=== PATIENT | male | born 1950 | race Caucasian/White ===

== ENCOUNTER 2018-02-26 13:28 | Emergency (ER) | payer OTHER, MEDICARE ==
[2018-02-26 13:50] VITALS: BP 162/84; PULSE 64; TEMP 98.2; BMI 29.8
[2018-02-26] MEDS ORDERED: SODIUM CHLORIDE 500 ML IV STA (14:00)
[2018-02-26] MEDS ORDERED: ONDANSETRON 4 MG/2 ML VIAL IVPB ONE (14:04)
[2018-02-26] MEDS ORDERED: KETOROLAC TROMETHAMINE 30 MG/1 ML VIAL IVPUSH ONE (14:04)
[2018-02-26] MEDS ORDERED: ONDANSETRON 4 MG/2 ML VIAL ONE (14:07)
[2018-02-26] MEDS ORDERED: KETOROLAC TROMETHAMINE 30 MG/1 ML VIAL ONE (14:07)
--- NOTE | 2018-02-26 14:07 | PDOC ---
History of Present Illness - General Chief Complaint: Hematuria Stated Complaint: ABD/BACK PAIN Time Seen by Provider: 02/26/18 13:56 - History of Present Illness Initial Comments: 02/26/18 18:11 Chief complaint: Abdominal pain History of present illness: Left flank pain radiating to the left lower quadrant beginning to 30 a.m. this morning, woke up from sleep. Pain was intermittent, accompanied by nausea and retching. Also noted that his urine was pink in color, but there was no dysuria. Review of systems: Denies fever/chills, URI symptoms, sore throat, cough, chest pain, shortness of breath, diarrhea, dysuria, frequency, urgency, hesitancy, visual or focal neurologic symptoms, unsteadiness of gait Past medical history: No history of kidney stones or other kidney disease. Hip replacement, knee surgery. Social history: Occasional social alcohol, none recently. No tobacco or other drugs active and without disability stable home and family Family history: Reviewed and noncontributory including early coronary artery disease, metabolic disease including diabetes, and cancer Physical exam: Alert and oriented well-developed well-nourished moderate colicky pain left flank and abdomen. Cooperative Afebrile, vital signs normal No pallor or icterus. HEENT clear Neck supple without bruit mass or nodes Chest clear CV regular without murmur rub or gallop no tachycardia Abdomen nondistended, bowel sounds normal. Soft without mass tenderness organomegaly. No CVAT Neurological intact Skin clear, no rash, adequate turgor and wet mucous membranes Extremities no CCE Impression: Probable renal colic. Pain is characteristic and there is hematuria Plan: Urinalysis, CBC and chemistries, IV hydration, analgesics and anti-emetics , further workup depending on results. Past History - Past Medical History Allergies/Adverse Reactions: Allergies Allergy/AdvReac Type Severity Reaction Status Date / Time morphine Allergy Intermediate Hives Verified 02/26/18 13:40 Home Medications: Ambulatory Orders Aspirin [Aspirin EC] 81 mg PO DAILY 06/29/11 Multivit-Min/Folic/Vit K/Lycop [One-A-Day Men's Tablet] 1 each PO DAILY Ibuprofen 800 mg PO QID PRN #20 tablet 02/26/18 Ondansetron [Zofran Odt -] 4 - 8 mg SL TID PRN #15 od.tablet 02/26/18 COPD: No - Suicide/Smoking/Psychosocial Hx Smoking Status: No Smoking History: Never smoked Have you smoked in the past 12 months: No Number of Cigarettes Smoked Daily: 0 Information on smoking cessation initiated: No Hx Alcohol Use: No Drug/Substance Use Hx: No Substance Use Type: None *Physical Exam - Vital Signs Last Vital Signs Temp Pulse Resp BP Pulse Ox 98.2 F 64 20 162/84 97 02/26/18 13:28 02/26/18 13:28 02/26/18 13:28 02/26/18 13:28 02/26/18 13:28 ED Treatment Course - LABORATORY CBC & Chemistry Diagram: 02/26/18 14:20 02/26/18 14:20 Medical Decision Making - Medical Decision Making 02/26/18 18:15 White blood count is normal. BUN/creatinine creatinine are elevated at 30 and 1.6, probable mild dehydration. Urinalysis shows blood but no sign of infection. Patient responded to IV hydration, Toradol, and Zofran. No further nausea. Pain resolved completely. Urinating normally. CT scan was discussed with the patient. He would prefer to forego the radiation at present. Sent home with a urine strainer, analgesics, and Zofran. To return to the emergency room if pain is persistent or if there are other signs that develop such as fever/chills, dysuria, or more severe back pain. Otherwise follow-up with urologist in one week. Referred to Dr. Acosta. *DC/Admit/Observation/Transfer Diagnosis at time of Disposition: Renal colic on left side - Discharge Dispostion Disposition: HOME Condition at time of disposition: Improved Decision to Admit order: No - Prescriptions Prescriptions: Ibuprofen 800 mg PO QID PRN #20 tablet PRN Reason: Pain Ondansetron [Zofran Odt -] 4 - 8 mg SL TID PRN #15 od.tablet PRN Reason: Nausea And/Or Vomiting - Referrals Referrals: Martir Hope MD., MD [Staff Physician] - 1 week - Patient Instructions Printed Discharge Instructions: DI for Kidney Stones Additional Instructions: Return to ER if the pain recurs and cannot be controlled with medication at home , or if there is fever, increased blood in the urine, back pain, or painful urination. Otherwise follow-up with urologist in approximately one week. Strain all urines for the next 2 or 3 days Keep well-hydrated. - Post Discharge Activity
[2018-02-26 14:34] LABS: BASO % 0.6 % (0-2.0); HEMATOCRIT 44.2 % (35.4-49); HEMOGLOBIN 14.9 GM/dl (11.7-16.9); LYMPH % 6.5 % (8-40); MCH 32.9 pg (25.7-33.7); MCHC 33.8 g/dl (32.0-35.9); MEAN CELL VOLUME 97.2 fl (80-96); MEAN PLT VOLUME 9.1 fl (7.5-11.1); MONO % 4.3 % (3.8-10.2); NEUT % 88.6 % (42.8-82.8); PLATELET COUNT 227 K/MM3 (134-434); RBC 4.55 M/mm3 (4.00-5.60); RDW 12.3 % (11.9-15.9); WHITE BLOOD COUNT 8.3 K/mm3 (4.0-10.8)
[2018-02-26 14:37] LABS: ALBUMIN 4.4 g/dl (3.5-5.0); ALK PHOS 72 U/L (32-92); ANION GAP 5 MMOL/L (8-16); BLOOD UREA NITROGEN 27 mg/dl (7-18); CALCIUM 9.4 mg/dl (8.4-10.2); CHLORIDE 105 mmol/L (98-107); CO2 23 mmol/L (22-28); CREATININE 1.6 mg/dl (0.6-1.3); GLUCOSE,RANDOM 140 mg/dl (74-106); SGOT/AST 31 U/L (10-42); SGPT/ALT 41 U/L (10-40); SODIUM 133 mmol/L (136-145); TOT PROT 7.7 g/dl (6.4-8.3)
[2018-02-26] MEDS ORDERED: SODIUM CHLORIDE 1,000 ML IV STA (15:00)
[2018-02-26 15:09] LABS: POTASSIUM 4.5 mmol/L (3.5-5.1)
[2018-02-26 15:49] LABS: URINE APPEARANCE Clear; URINE BILIRUBIN Negative (NEGATIVE); URINE COLOR Amber; URINE GLUCOSE (UA) Negative (NEGATIVE); URINE KETONE 1+ (NEGATIVE); URINE LEUK ESTERASE Negative (NEGATIVE); URINE NITRITE Negative (NEGATIVE); URINE PROTEIN 3+ (NEGATIVE); URINE UROBILINOGEN 0.2 (0.2-1.0)
[2018-02-26 16:11] LABS: URINE RBC 20-40 /hpf (0-3); URINE WBC 0-2 (0-2)
== END 2018-02-26 16:33 | disposition home or self-care (01) ==
LOC: FER 13:28
PROC: 3E0333Z Introduction of Anti-inflammatory into Peripheral Vein, Percutaneous Approach (ICD-10-PCS; principal; 2018-02-26)
PROC: 3E033GC Introduction of Other Therapeutic Substance into Peripheral Vein, Percutaneous Approach (ICD-10-PCS; 2018-02-26)
PROC: 3E0337Z Introduction of Electrolytic and Water Balance Substance into Peripheral Vein, Percutaneous Approach (ICD-10-PCS; 2018-02-26)
DX: N23 Unspecified renal colic (principal)
CPT/HCPCS: 36415; 80053; 81003; 81015; 85025; 96361; 96374; 96375; 99283-25; J7030

== ENCOUNTER 2018-03-01 00:56 | Observation (INO) | payer OTHER, MEDICARE ==
[2018-03-01] MEDS ORDERED: SODIUM CHLORIDE 0.9% 500 ML INFUS.BAG IV ONE (01:03)
[2018-03-01] MEDS ORDERED: LACTULOSE 20 GM/30 ML UDC (FOR ORAL USE ONLY) PO ONE (01:03)
[2018-03-01] MEDS ORDERED: KETOROLAC TROMETHAMINE 30 MG/1 ML VIAL IVPUSH ONE (01:03)
--- NOTE | 2018-03-01 01:03 | PDOC ---
History of Present Illness - General Chief Complaint: Pain Stated Complaint: PAIN/CONSTIPATION Time Seen by Provider: 03/01/18 01:03 Past History - Travel Traveled outside of the country in the last 30 days: No Close contact w/someone who was outside of country & ill: No - Past Medical History Allergies/Adverse Reactions: Allergies Allergy/AdvReac Type Severity Reaction Status Date / Time morphine Allergy Intermediate Hives Verified 02/26/18 13:40 Home Medications: Ambulatory Orders Aspirin [Aspirin EC] 81 mg PO DAILY 06/29/11 Multivit-Min/Folic/Vit K/Lycop [One-A-Day Men's Tablet] 1 each PO DAILY Ibuprofen 800 mg PO QID PRN #20 tablet 02/26/18 Ondansetron [Zofran Odt -] 4 - 8 mg SL TID PRN #15 od.tablet 02/26/18 COPD: No - Suicide/Smoking/Psychosocial Hx Smoking Status: No Smoking History: Never smoked Have you smoked in the past 12 months: No Number of Cigarettes Smoked Daily: 0 Hx Alcohol Use: No Drug/Substance Use Hx: No Substance Use Type: None Review of Systems - Review of Systems Able to Perform ROS?: Yes Is the patient limited Swedish proficient: No Constitutional: Yes: Loss of Appetite, Malaise. No: Symptoms Reported, See HPI , Chills, Diaphoresis, Fever, Night Sweats, Weakness, Weight Stable, Unintentional Wgt. Loss, Unexplained wgt Loss, Other HEENTM: No: Symptoms Reported, See HPI, Eye Pain, Blurred Vision, Tearing, Recent change in vision, Double Vision, Cataracts, Ear Pain, Ocular Prothesis, Ear Discharge, Nose Pain, Nose Congestion, Tinnitus, Nose Bleeding, Hearing Loss , Throat Pain, Throat Swelling, Mouth Pain, Dental Problems, Difficulty Swallowing, Mouth Swelling, Other Respiratory: No: Symptoms reported, See HPI, Cough, Orthopnea, Shortness of Breath, SOB with Exertion, SOB at Rest, Stridor, Wheezing, Productive cough, Hemoptysis, Other Cardiac (ROS): No: Symptoms Reported, See HPI, Chest Pain, Edema, Irregular Heart Rate, Lightheadedness, Palpitations, Syncope, Chest Tightness, Other ABD/GI: Yes: Constipated, Abdominal cramping. No: Symptoms Reported, See HPI, Abdominal Distended, Abd. Pain w/ defecation, Blood Streaked Bowels, Diarrhea, Difficulty Swallowing, Nausea, Poor Appetite, Poor Fluid Intake, Rectal Bleeding , Vomiting, Indigestion, Tarry Stools, Other : Yes: Other (suprapubic pain). No: Symptoms Reported, See HPI, Burning, Dysuria, Discharge, Frequency, Flank Pain, Hematuria, Incontinence, Pain, Urgency, Testicular Mass, Testicular Swelling, Lesions, Testicular Pain Musculoskeletal: No: Symptoms Reported, See HPI, Back Pain, Gout, Joint Pain, Joint Swelling, Muscle Pain, Muscle Weakness, Neck Pain, Joint Stiffness, Other Integumentary: No: Symptoms Reported, See HPI, Bruising, Change in Color, Change in Hair/Nails, Dryness, Erythema, Flushing, Lesions, Lumps, Pallor, Pruritus, Rash, Sweating, Other Endocrine: Yes: Intolerance to Cold Hematologic/Lymphatic: No: Symptoms Reported, See HPI, Anemia, Blood Clots, Easy Bleeding, Easy Bruising, Bleeding Diathesis, Lymph Node Abnormalities, Swollen Glands, Other *Physical Exam - Physical Exam General Appearance: Yes: Nourished, Appropriately Dressed, Mild Distress HEENT: positive: EOMI, ERNESTINE, Normal ENT Inspection, Normal Voice, TMs Normal, Pharynx Normal Neck: positive: Trachea midline, Supple Respiratory/Chest: positive: Lungs Clear, Normal Breath Sounds Cardiovascular: positive: Regular Rhythm, Regular Rate, S1, S2 Gastrointestinal/Abdominal: positive: Normal Bowel Sounds, Flat, Soft Musculoskeletal: positive: Normal Inspection. 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 Unremarkable pancreas and gallbladder. No bowel obstruction, colitis, free fluid or free air.Appendix not seen. At least one diverticulum sigmoid colon. Small umbilical hernia containing fat. Arthroplasty right hip. Small indolent appearing cystic focus in lateral left rib 7 03/01/18 03:42 Pt feels slight improvement with zofran and 2L NSS. He was able to give us a urine sample which was sent to the lab. Awaiting results. As needed, we will treat with abx. Pt was given a dose of toradol (before I knew of the renal insuff) Pt has a morphine allergy (hives) and he has elevated LFTs, so tylenol is not a great option for him either. Pt will be admitted to the hospitalist team for hydronephrosis, elevated LFTs, worsening renal insuff in the past 2 days, as well as dehydration and pain management. Hospitalist team is aware. *DC/Admit/Observation/Transfer Diagnosis at time of Disposition: Renal colic on left side, Suprapubic discomfort, Renal insufficiency, Elevated LFTs, Hydronephrosis due to obstruction of ureter - Discharge Dispostion Condition at time of disposition: Guarded Decision to Admit order: Yes - Referrals - Patient Instructions - Post Discharge Activity
[2018-03-01] MEDS ORDERED: KETOROLAC TROMETHAMINE 30 MG/1 ML VIAL ONE (01:06)
[2018-03-01] MEDS ORDERED: LACTULOSE 20 GM/30 ML UDC (FOR ORAL USE ONLY) ONE (01:06)
[2018-03-01] MEDS ORDERED: ONDANSETRON 4 MG TABLET PO ONE (01:22)
[2018-03-01] MEDS ORDERED: ONDANSETRON 4 MG/2 ML VIAL ONE (01:23)
[2018-03-01] MEDS ORDERED: ONDANSETRON 4 MG/2 ML VIAL IVPUSH ONE (01:25)
[2018-03-01 02:24] LABS: BASO % 0.2 % (0-2.0); HEMATOCRIT 42.3 % (35.4-49); HEMOGLOBIN 14.2 GM/dL (11.7-16.9); LYMPH % 3.5 % (8-40); MCH 32.6 pg (25.7-33.7); MCHC 33.6 g/dl (32.0-35.9); MEAN CELL VOLUME 97.2 fl (80-96); MEAN PLT VOLUME 9.6 fl (7.5-11.1); MONO % 7.7 % (3.8-10.2); NEUT % 88.6 % (42.8-82.8); PLATELET COUNT 182 K/MM3 (134-434); RBC 4.35 M/mm3 (4.00-5.60); RDW 12.7 % (11.9-15.9); WHITE BLOOD COUNT 13.9 K/mm3 (4.0-10.0)
[2018-03-01 02:45] LABS: ALBUMIN 3.8 g/dl (3.4-5.0); ALK PHOS 99 U/L (45-117); ANION GAP 9 MMOL/L (8-16); BILIRUBIN,TOTAL 1.2 mg/dL (0.2-1); BLOOD UREA NITROGEN 26 mg/dL (7-18); CALCIUM 8.9 mg/dL (8.5-10.1); CHLORIDE 106 mmol/L (98-107); CO2 24 mmol/L (21-32); CREATININE 2.2 mg/dL (0.55-1.3); GLUCOSE,RANDOM 150 mg/dL (74-106); SGOT/AST 58 U/L (15-37); SGPT/ALT 84 U/L (13-61); SODIUM 139 mmol/L (136-145); TOT PROT 7.5 g/dl (6.4-8.2)
[2018-03-01] MEDS ORDERED: TAMSULOSIN HCL 0.4 MG CAP PO ONE (02:54)
[2018-03-01] MEDS ORDERED: MAG HYDROX/AL HYDROX/SIMETH 30 ML UNIT-DOSE CUP PO ONE (03:16)
[2018-03-01] MEDS ORDERED: MAG HYDROX/AL HYDROX/SIMETH 30 ML UNIT-DOSE CUP ONE (03:18)
[2018-03-01] MEDS ORDERED: TAMSULOSIN HCL 0.4 MG CAP ONE (03:19)
[2018-03-01] MEDS ORDERED: oxyCODONE HCL 5 MG TABLET PO PRN (03:42)
[2018-03-01] MEDS ORDERED: ONDANSETRON 4 MG/2 ML VIAL IVPUSH PRN (03:42)
[2018-03-01] MEDS ORDERED: ACETAMINOPHEN 325 MG TABLET (FP) PO PRN (03:43)
[2018-03-01 03:46] LABS: URINE APPEARANCE SLCLOUDY; URINE BILIRUBIN NEGATIVE (<2.0 mg/dL); URINE COLOR YELLOW; URINE GLUCOSE (UA) NEGATIVE (NEGATIVE); URINE KETONE NEGATIVE (NEGATIVE); URINE LEUK ESTERASE NEGATIVE (NEGATIVE); URINE NITRITE NEGATIVE (NEGATIVE); URINE PROTEIN 2+ (NEGATIVE); URINE UROBILINOGEN NEGATIVE mg/dL (0.2-1.0)
[2018-03-01 03:52] LABS: EPI CELLS RARE /HPF (FEW); URINE MUCUS RARE
[2018-03-01 04:30] VITALS: BMI 30.5
--- NOTE | 2018-03-01 08:36 | HP ---
CHIEF COMPLAINT: abdominal pain PCP: Dr Butler HISTORY OF PRESENT ILLNESS: Patient is a 60-year-old male with no significant past medical history as per patient. Patient reports with left flank pain for the past 5 days. He was evaluated and this was a department on February 26 2018 and was discharged with Renal calculi. Patient reports worsening of flank pain radiating to abdomen with nausea. He denies any tactile fever. ER course was notable for: (1)CT scan of abdomen and pelvis without contrast, 2 mm stone distal left ureter with moderate hydronephrosis. (2)Creatinine 2.2 (3)AST ALT 58/84. 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 Smoking: none Alcohol:none Drugs: none Family History: non- contributory to this admission Allergies morphine Allergy (Intermediate, Verified 02/26/18 13:40) Hives HOME MEDICATIONS: Home Medications Medication Instructions Recorded Aspirin [Aspirin EC] 81 mg PO DAILY 06/29/11 Multivit-Min/Folic/Vit K/Lycop 1 each PO DAILY 06/29/11 [One-A-Day Men's Tablet] Ibuprofen 800 mg PO QID PRN #20 tablet 02/26/18 Ondansetron [Zofran Odt -] 4 - 8 mg SL TID PRN #15 od.tablet 02/26/18 REVIEW OF SYSTEMS CONSTITUTIONAL: Absent: fever, chills, diaphoresis, generalized weakness, malaise, loss of appetite, weight change HEENT: Absent: rhinorrhea, nasal congestion, throat pain, throat swelling, difficulty swallowing, mouth swelling, ear pain, eye pain, visual changes CARDIOVASCULAR: Absent: chest pain, syncope, palpitations, irregular heart rate, lightheadedness , peripheral edema RESPIRATORY: Absent: cough, shortness of breath, dyspnea with exertion, orthopnea, wheezing, stridor, hemoptysis GASTROINTESTINAL: present: abdominal pain Absent: abdominal distension, nausea, vomiting, diarrhea, constipation, melena, hematochezia GENITOURINARY: Absent: dysuria, frequency, urgency, hesitancy, hematuria, flank pain, genital pain MUSCULOSKELETAL: Absent: myalgia, arthralgia, joint swelling, back pain, neck pain SKIN: Absent: rash, itching, pallor HEMATOLOGIC/IMMUNOLOGIC: Absent: easy bleeding, easy bruising, lymphadenopathy, frequent infections ENDOCRINE: Absent: unexplained weight gain, unexplained weight loss, heat intolerance, cold intolerance NEUROLOGIC: Absent: headache, focal weakness or paresthesias, dizziness, unsteady gait, seizure, mental status changes, bladder or bowel incontinence PSYCHIATRIC: Absent: anxiety, depression, suicidal or homicidal ideation, hallucinations. PHYSICAL EXAMINATION Vital Signs - 24 hr 03/01/18 03/01/18 01:00 03:50 Temperature 97.8 F 98.1 F Pulse Rate 62 68 Respiratory 18 20 Rate Blood Pressure 149/90 134/74 O2 Sat by Pulse 98 98 Oximetry (%) GENERAL: Awake, alert, and fully oriented, in no acute distress. HEAD: Normal with no signs of trauma. EYES: Pupils equal, round and reactive to light, extraocular movements intact, sclera anicteric, conjunctiva clear. No lid lag. EARS, NOSE, THROAT: Ears normal, nares patent, oropharynx clear without exudates. Moist mucous membranes. NECK: Normal range of motion, supple without lymphadenopathy, JVD, or masses. LUNGS: Breath sounds equal, clear to auscultation bilaterally. No wheezes, and no crackles. No accessory muscle use. HEART: Regular rate and rhythm, normal S1 and S2 without murmur, rub or gallop. ABDOMEN: Soft, nontender, not distended, normoactive bowel sounds, no guarding, no rebound, no masses. No hepatomegaly or splenomegaly. MUSCULOSKELETAL: Normal range of motion at all joints. No bony deformities or tenderness. No CVA tenderness. UPPER EXTREMITIES: 2+ pulses, warm, well-perfused. No cyanosis. No clubbing. No peripheral edema. LOWER EXTREMITIES: 2+ pulses, warm, well-perfused. No calf tenderness. No peripheral edema. NEUROLOGICAL: Cranial nerves II-XII intact. Normal speech. Normal gait. PSYCHIATRIC: Cooperative. Good eye contact. Appropriate mood and affect. SKIN: Warm, dry, normal turgor, no rashes or lesions noted, normal capillary refill. Laboratory Results - last 24 hr 03/01/18 03/01/18 03/01/18 01:15 01:15 03:00 WBC 13.9 H RBC 4.35 Hgb 14.2 Hct 42.3 MCV 97.2 H MCH 32.6 MCHC 33.6 RDW 12.7 Plt Count 182 MPV 9.6 Absolute Neuts (auto) 12.3 H Neutrophils % 88.6 H Lymphocytes % 3.5 L Monocytes % 7.7 Eosinophils % 0.0 Basophils % 0.2 Nucleated RBC % 0 Sodium 139 Potassium 4.0 Chloride 106 Carbon Dioxide 24 Anion Gap 9 BUN 26 H Creatinine 2.2 H Creat Clearance w eGFR 29.91 Random Glucose 150 H Calcium 8.9 Total Bilirubin 1.2 H AST 58 H ALT 84 H Alkaline Phosphatase 99 Total Protein 7.5 Albumin 3.8 Urine Color Yellow Urine Appearance Slcloudy Urine pH 5.0 Ur Specific [place] 1.014 Urine Protein 2+ H Urine Glucose (UA) Negative Urine Ketones Negative Urine Blood 1+ H Urine Nitrite Negative Urine Bilirubin Negative Urine Urobilinogen Negative Ur Leukocyte Esterase Negative Urine WBC (Auto) 3 Urine RBC (Auto) None Ur Epithelial Cells Rare Urine Mucus Rare ASSESSMENT/PLAN: 1) urology ureter calculi w/left hydronephrosis obstructive uropathy -preliminary ct scan report reviewed, awaiting final, will continue IVF, start flomax - strain all urine - repeat bmp ordered, close following - appreciate urology input 2) GI transanimitis - benign abdomimal exam, patient does report taking tylenol every 4 hours for the past 48 hours - trend liver enzymes F/E/N - regular diet - ivf ppx - oob - pepcid dispo: pt requires obsv admission Visit type - Emergency Visit Emergency Visit: Yes ED Registration Date: 03/01/18 Care time: The patient presented to the Emergency Department on the above date and was hospitalized for further evaluation of their emergent condition. - New Patient This patient is new to me today: Yes Date on this admission: 03/01/18 - Critical Care Critical Care patient: No
[2018-03-01] MEDS: CEFTRIAXONE 1 GM/50 ML BAG IVPB SCH (10:17)
[2018-03-01] MEDS: SODIUM CHLORIDE 1,000 ML IV SCH (10:17)
[2018-03-01] MEDS: MULTIVITAMINS (DAILY MVI) TABLET (FP) PO SCH (10:19)
[2018-03-01] MEDS: POLYETHYLENE GLYCOL 3350 119 GM BTL PO SCH (10:19)
[2018-03-01] MEDS: ASPIRIN COATED 81 MG TABLET.EC PO SCH (10:19)
[2018-03-01 11:32] LABS: BASO % 0.2 % (0-2.0); HEMATOCRIT 36.9 % (35.4-49); HEMOGLOBIN 12.8 GM/dl (11.7-16.9); LYMPH % 3.9 % (8-40); MCH 33.2 pg (25.7-33.7); MCHC 34.6 g/dl (32.0-35.9); MEAN PLT VOLUME 8.6 fl (7.5-11.1); MONO % 8.7 % (3.8-10.2); NEUT % 87.2 % (42.8-82.8); PLATELET COUNT 162 K/MM3 (134-434); RBC 3.84 M/mm3 (4.00-5.60); RDW 11.6 % (11.9-15.9)
[2018-03-01 11:45] LABS: INR 1.46 (0.82-1.09); PROTHROMBIN TIME (PATIENT) 16.2 SEC (10.2-13.0)
[2018-03-01 11:46] LABS: ALBUMIN 3.2 g/dl (3.5-5.0); ALK PHOS 85 U/L (32-92); ANION GAP 6 MMOL/L (8-16); BILIRUBIN,TOTAL 1.3 mg/dl (0.2-1.0); BLOOD UREA NITROGEN 24 mg/dl (7-18); CALCIUM 8.6 mg/dl (8.4-10.2); CHLORIDE 106 mmol/L (98-107); CO2 24 mmol/L (22-28); GLUCOSE,RANDOM 134 mg/dl (74-106); MAGNESIUM 2.1 mg/dL (1.8-2.4); POTASSIUM 4.9 mmol/L (3.5-5.1); SGOT/AST 54 U/L (10-42); SGPT/ALT 74 U/L (10-40); SODIUM 136 mmol/L (136-145)
[2018-03-01] MEDS ORDERED: FLU VACCINE QUAD 60 MCG/0.5 ML (MDV 18-19) IM ONE (12:00)
[2018-03-01] MEDS ORDERED: SODIUM PHOSPHATE - 15 MM in SODIUM CHLORIDE 250 ML IVPB ONE (12:15)
--- NOTE | 2018-03-01 17:33 | CON.GU ---
Consult Consult Specialty:: urology Reason for Consultation:: left renal colic - History of Present Illness Chief Complaint: left colic History of Present Illness: Patient is a 68 year old male who presented with left sided renal colic with nausea. Patient's symtoms started 4 days ago. Patient has not seen a doctor for 2 years however denies history of chronic kidney disease. Patient denies dysuria, fever, chills, or gross hematuria. - History Source History Provided By: Patient Limitations to Obtaining History: No Limitations - Alcohol/Substance Use Hx Alcohol Use: No - Smoking History Smoking history: Never smoked Have you smoked in the past 12 months: No Aproximately how many cigarettes per day: 0 Home Medications - Allergies Allergies/Adverse Reactions: Allergies Allergy/AdvReac Type Severity Reaction Status Date / Time morphine Allergy Intermediate Hives Verified 02/26/18 13:40 - Home Medications Home Medications: Ambulatory Orders Aspirin [Aspirin EC] 81 mg PO DAILY 06/29/11 Multivit-Min/Folic/Vit K/Lycop [One-A-Day Men's Tablet] 1 each PO DAILY Ibuprofen 800 mg PO QID PRN #20 tablet 02/26/18 Ondansetron [Zofran Odt -] 4 - 8 mg SL TID PRN #15 od.tablet 02/26/18 Physical Exam- Vital Signs: Vital Signs Temperature 99.1 F 03/01/18 14:59 Pulse Rate 87 03/01/18 14:59 Respiratory Rate 18 03/01/18 14:59 Blood Pressure 127/67 03/01/18 14:59 O2 Sat by Pulse Oximetry (%) 98 03/01/18 09:00 Constitutional: Yes: Well Nourished, No Distress, Calm Eyes: Yes: WNL, Conjunctiva Clear, EOM Intact HENT: Yes: WNL, Atraumatic, Normocephalic Neck: Yes: WNL, Supple, Trachea Midline Cardiovascular: Yes: WNL, Regular Rate and Rhythm Respiratory: Yes: WNL, Regular Gastrointestinal: Yes: WNL, Normal Bowel Sounds, Soft Renal/: Yes: CVA Tenderness - Left (with mild suprapubic tenderness; left flank pain is mild) Pelvis: Yes: Bladder Non Palpable Testicles: Yes: WNL Scrotum: Yes: WNL Penis: Yes: WNL Prostate Exam: Yes: Deferred Musculoskeletal: Yes: WNL Labs: CBC, BMP 03/01/18 11:18 03/01/18 11:18 Imaging - Results Cat Scan: Image Reviewed Assessment/Plan impression left ureteral stone with hydro acute renal insufficiency plan maintain on flomax patient is urologically cleared for discharged once nausea and pain controlled patient will follow-up for a renal sonogram and repeat chemistry this week discussed with patient x15 minutes
--- NOTE | 2018-03-01 21:32 | EKG ---
Test Reason : Blood Pressure : / mmHG Vent. Rate : 060 BPM Atrial Rate : 060 BPM P-R Int : 142 ms QRS Dur : 086 ms QT Int : 416 ms P-R-T Axes : 038 008 -03 degrees QTc Int : 416 ms NORMAL SINUS RHYTHM NORMAL ECG NO PREVIOUS ECGS AVAILABLE Confirmed by LUPE ROMERO MD ([id number]) on 03/01/2018 9:32:21 PM Referred By: MD KLEIN Confirmed By:LUPE ROMERO MD
[2018-03-01] MEDS ORDERED: DOCUSATE SODIUM 100 MG CAPSULE (FP) PO SCH (22:00)
[2018-03-02] MEDS ORDERED: TAMSULOSIN HCL 0.4 MG CAP PO SCH (08:30)
[2018-03-02 08:31] LABS: BASO % 0.1 % (0-2.0); EOS % 0.3 % (0-4.5); HEMATOCRIT 33.8 % (35.4-49); LYMPH % 8.7 % (8-40); MCH 34.2 pg (25.7-33.7); MCHC 35.3 g/dl (32.0-35.9); MEAN CELL VOLUME 96.8 fl (80-96); MEAN PLT VOLUME 9.1 fl (7.5-11.1); MONO % 10.7 % (3.8-10.2); NEUT % 80.2 % (42.8-82.8); PLATELET COUNT 159 K/MM3 (134-434); RDW 11.9 % (11.9-15.9); WHITE BLOOD COUNT 10.6 K/mm3 (4.0-10.8)
[2018-03-02 08:38] LABS: ANION GAP 4 MMOL/L (8-16); BLOOD UREA NITROGEN 23 mg/dl (7-18); CALCIUM 7.7 mg/dl (8.4-10.2); CHLORIDE 108 mmol/L (98-107); CO2 22 mmol/L (22-28); GLUCOSE,RANDOM 108 mg/dl (74-106); MAGNESIUM 1.9 mg/dL (1.8-2.4); PHOSPHOROUS 2.3 mg/dl (2.5-4.6); POTASSIUM 4.6 mmol/L (3.5-5.1); SODIUM 134 mmol/L (136-145)
[2018-03-02] MEDS: MULTIVITAMINS (DAILY MVI) TABLET (FP) PO SCH (09:48)
[2018-03-02] MEDS: CEFTRIAXONE 1 GM/50 ML BAG IVPB SCH (09:48)
[2018-03-02] MEDS: SODIUM CHLORIDE 1,000 ML IV SCH (09:48)
[2018-03-02] MEDS: ASPIRIN COATED 81 MG TABLET.EC PO SCH (09:48)
[2018-03-02] MEDS: POLYETHYLENE GLYCOL 3350 119 GM BTL PO SCH (09:49)
[2018-03-02] MEDS ORDERED: NAPH,MB-DB/K PH,MBDB POWDER PACKET PO SCH (10:00)
--- NOTE | 2018-03-02 11:38 | DS ---
Physical Exam: SUBJECTIVE: Patient seen and examined, reports abdominal pain is much improved, tolerating diet, denies any tactile fevers. OBJECTIVE:Patient is a 60-year-old male with no significant past medical history as per patient. Patient reports with left flank pain for the past 5 days. He was evaluated and this was a department on February 26 2018 and was discharged with Renal calculi. Patient reports worsening of flank pain radiating to abdomen with nausea. He denies any tactile fever. ER course was notable for: (1)CT scan of abdomen and pelvis without contrast, 2 mm stone distal left ureter with moderate hydronephrosis. (2)Creatinine 2.2 (3)AST ALT 58/84. Vital Signs Period Temp Pulse Resp BP Sys/Magdaleno Pulse Ox Last 24 Hr 99.1 F-99.7 F 66-87 18-20 123-142/67-71 97-98 PHYSICAL EXAM GENERAL: The patient is awake, alert, and fully oriented, in no acute distress. HEAD: Normal with no signs of trauma. EYES: PERRL, extraocular movements intact, sclera anicteric, conjunctiva clear. ENT: Ears normal, nares patent, oropharynx clear without exudates, moist mucous membranes. NECK: Trachea midline, full range of motion, supple. LUNGS: Breath sounds equal, clear to auscultation bilaterally, no wheezes, no crackles, no accessory muscle use. HEART: Regular rate and rhythm, S1, S2 without murmur, rub or gallop. ABDOMEN: no cva tenderness, Soft, nontender, nondistended, normoactive bowel sounds, no guarding, no rebound, no hepatosplenomegaly, no masses. EXTREMITIES: 2+ pulses, warm, well-perfused, no edema. NEUROLOGICAL: Cranial nerves II through XII grossly intact. Normal speech, gait not observed. PSYCH: Normal mood, normal affect. SKIN: Warm, dry, normal turgor, no rashes or lesions noted. LABS Laboratory Results - last 24 hr 03/01/18 03/01/18 03/01/18 11:18 11:18 11:18 WBC 12.0 H RBC 3.84 L Hgb 12.8 Hct 36.9 D MCV 96.0 MCH 33.2 MCHC 34.6 RDW 11.6 L Plt Count 162 D MPV 8.6 Absolute Neuts (auto) 10.5 Neutrophils % 87.2 H Lymphocytes % 3.9 L D Monocytes % 8.7 D Eosinophils % 0.0 Basophils % 0.2 PT with INR 16.2 H INR 1.46 H Sodium 136 Potassium 4.9 Chloride 106 Carbon Dioxide 24 Anion Gap 6 L BUN 24 H Creatinine 2.0 H Creat Clearance w eGFR 33.39 Random Glucose 134 H Calcium 8.6 Phosphorus 2.0 L Magnesium 2.1 Total Bilirubin 1.3 H AST 54 H D ALT 74 H D Alkaline Phosphatase 85 D Total Protein 6.0 L Albumin 3.2 L 03/02/18 03/02/18 07:54 07:54 WBC 10.6 RBC 3.50 L Hgb 12.0 Hct 33.8 L MCV 96.8 H MCH 34.2 H MCHC 35.3 RDW 11.9 Plt Count 159 MPV 9.1 Absolute Neuts (auto) 8.6 Neutrophils % 80.2 Lymphocytes % 8.7 D Monocytes % 10.7 H Eosinophils % 0.3 D Basophils % 0.1 PT with INR INR Sodium 134 L Potassium 4.6 Chloride 108 H Carbon Dioxide 22 Anion Gap 4 L BUN 23 H Creatinine 2.0 H Creat Clearance w eGFR 33.39 Random Glucose 108 H Calcium 7.7 L Phosphorus 2.3 L Magnesium 1.9 Total Bilirubin AST ALT Alkaline Phosphatase Total Protein Albumin Microbiology 03/01/18 03:00 Urine - Urine Clean Catch Urine Culture - Final NO GROWTH OBTAINED IMAGING CT scan of abdomen and pelvis without contrast, 2 mm stone distal left ureter with moderate hydronephrosis. HOSPITAL COURSE: 1) urology ureter calculi w/left hydronephrosis obstructive uropathy - creatine 2.0, unknown baseline, was noted to be elevated, patient also reports taking ibuprofen 800mg q6 for the past 48 hours - ct scan report reviewed with Dr Blanco, case discussed, patient was evaluated by urology, advised follow up in office within 5 days - patient was started on flomax - strain all urine 2) GI transanimitis - benign abdomimal exam, patient does report taking tylenol every 4 hours for the past 48 hours PLAN - dischare home with strict follow-up to the urologist, Dr Blanco within 5 days - continue flomax daily - return precautions reviewed Date of Admission:03/01/18 Date of Discharge: 03/02/18 Minutes to complete discharge: 45 Discharge Summary Reason For Visit: HYDRONEPHROSIS/ELEV. LFTS/RENAL INSUFF. Current Active Problems Elevated LFTs (Acute) Hydronephrosis due to obstruction of ureter (Acute) Renal colic on left side (Acute) Renal insufficiency (Acute) Suprapubic discomfort (Acute) Condition: Guarded - Instructions - Home Medications Comprehensive Discharge Medication List: Ambulatory Orders Aspirin [Aspirin EC] 81 mg PO DAILY 06/29/11 Multivit-Min/Folic/Vit K/Lycop [One-A-Day Men's Tablet] 1 each PO DAILY Ibuprofen 800 mg PO QID PRN #20 tablet 02/26/18 Ondansetron [Zofran Odt -] 4 - 8 mg SL TID PRN #15 od.tablet 02/26/18
[2018-03-02 11:55] VITALS: BP 139/70; PULSE 70; TEMP 98.9
== END 2018-03-02 12:17 | disposition home or self-care (01) ==
LOC: FER 00:56 → FM/S 03:50 → UNDOADMOB 03:50 → FM/S 21:47
PROVIDERS: ADMIT Internal Medicine; ATTEND Nurse Practitioner Family
PROC: 3E03329 Introduction of Other Anti-infective into Peripheral Vein, Percutaneous Approach (ICD-10-PCS; principal; 2018-03-01)
PROC: 3E0333Z Introduction of Anti-inflammatory into Peripheral Vein, Percutaneous Approach (ICD-10-PCS; 2018-03-01)
PROC: 3E0337Z Introduction of Electrolytic and Water Balance Substance into Peripheral Vein, Percutaneous Approach (ICD-10-PCS; 2018-03-01)
PROC: 3E033GC Introduction of Other Therapeutic Substance into Peripheral Vein, Percutaneous Approach (ICD-10-PCS; 2018-03-01)
PROC: 3E0234Z Introduction of Serum, Toxoid and Vaccine into Muscle, Percutaneous Approach (ICD-10-PCS; 2018-03-01)
DX: N13.2 Hydronephrosis with renal and ureteral calculous obstruction (principal); N28.9 Disorder of kidney and ureter, unspecified; R94.5 Abnormal results of liver function studies; R10.30 Lower abdominal pain, unspecified; R74.0 Nonspecific elevation of levels of transaminase and lactic acid dehydrogenase [LDH]; Z23 Encounter for immunization
CPT/HCPCS: 36415; 74176; 80048; 80053; 81003; 81015; 83735; 84100; 85025; 85610; 87086; 90471; 90688; 93005; 96361; 96374; 96375; 96376; 99284-25; G0378; J7030

== ENCOUNTER 2018-03-15 10:17 | Day surgery (SDC) | payer OTHER, MEDICARE ==
[2018-03-15 10:28] VITALS: BMI 29.9
--- NOTE | 2018-03-15 11:18 | PDOC ---
History of Present Illness - General Chief Complaint: Pain, Acute Stated Complaint: PCP SENT Time Seen by Provider: 03/15/18 11:09 History Source: Patient Exam Limitations: No Limitations - History of Present Illness Initial Comments: 03/15/18 12:44 Mr. Campbell is a 68 yo M with a hx of nephrolithiasis followed by Dr. Blanco who presents to the ED at Dr. Blanco's request for admission to the OR for ureteral stent. Per the patient, he was seen last Thursday and it was determined he needed intervention due to persistent creatinine elevation. The patient currently denies pain. He endorses having hive like rash in the mid axillary line bilaterally after recently switching his detergent. Denies using new medications or substances. Denies the following: fever, chills, nausea, vomiting , chest pain, SOB, abdominal pain, hematuria, dysuria, diarrhea, hematochezia, throat swelling, ear pain, eye pain, visual changes, melena, and leg pain/ swelling. Pmhx: Refer to above Shx: Right hip replacement Meds: aspirin 81 mg, vitamins, flomax Allergies: Sulfa, morphine PCP: None Social: Denies tobacco, alcohol, and drug use. Past History - Past Medical History Allergies/Adverse Reactions: Allergies Allergy/AdvReac Type Severity Reaction Status Date / Time morphine Allergy Intermediate Hives Verified 03/15/18 10:24 Home Medications: Ambulatory Orders Aspirin [Aspirin EC] 81 mg PO DAILY 06/29/11 Multivit-Min/Folic/Vit K/Lycop [One-A-Day Men's Tablet] 1 each PO DAILY Acetaminophen [Tylenol .Regular Strength -] 650 mg PO Q6H PRN tablet 03/02/18 Polyethylene Glycol 3350 [Miralax 119 gm Btl -] 17 gm PO DAILY #1 bottle Tamsulosin HCl [Flomax -] 0.4 mg PO DAILY@0830 #30 cap.er.24h 03/02/18 Anemia: No Asthma: No Cancer: No Cardiac Disorders: No CVA: No COPD: No CHF: No Dementia: No Diabetes: No GI Disorders: Yes (renal stones) Disorders: No HTN: No Hypercholesterolemia: No Kidney Stones: Yes Liver Disease: No Seizures: No Thyroid Disease: No - Surgical History Orthopedic Surgery: Yes (right total hip) - Suicide/Smoking/Psychosocial Hx Smoking Status: No Smoking History: Never smoked Have you smoked in the past 12 months: No Number of Cigarettes Smoked Daily: 0 Hx Alcohol Use: No Drug/Substance Use Hx: No Substance Use Type: None Hx Substance Use Treatment: No Review of Systems - Review of Systems Able to Perform ROS?: Yes Is the patient limited [place] proficient: No Constitutional: No: Chills, Diaphoresis, Fever HEENTM: No: Eye Pain, Recent change in vision, Nose Pain, Throat Pain, Throat Swelling, Mouth Pain Respiratory: No: Shortness of Breath Cardiac (ROS): No: Chest Pain, Palpitations, Syncope ABD/GI: No: Constipated, Diarrhea, Nausea, Rectal Bleeding, Vomiting, Tarry Stools Musculoskeletal: No: Back Pain Integumentary: Yes: Rash (hives) Neurological: No: Headache, Numbness, Unsteady Gait Endocrine: No: Unexplained Weight Loss Hematologic/Lymphatic: No: Anemia *Physical Exam - Vital Signs Last Vital Signs Temp Pulse Resp BP Pulse Ox 98.8 F 83 16 114/74 99 03/15/18 10:27 03/15/18 10:27 03/15/18 10:27 03/15/18 10:27 03/15/18 10:27 - Physical Exam General Appearance: Yes: Nourished, Appropriately Dressed. No: Apparent Distress HEENT: positive: EOMI, ERNESTINE Neck: negative: Lymphadenopathy (R), Lymphadenopathy (L) Respiratory/Chest: positive: Lungs Clear, Normal Breath Sounds. negative: Chest Tender, Respiratory Distress, Accessory Muscle Use Cardiovascular: positive: Regular Rhythm, Regular Rate, S1, S2. negative: Systolic Murmur Gastrointestinal/Abdominal: positive: Normal Bowel Sounds, Soft. negative: Tender, Pulsatile Mass Lymphatic: negative: Adenopathy Musculoskeletal: positive: Normal Inspection. negative: CVA Tenderness Extremity: positive: Normal Capillary Refill, Normal Inspection, Normal Range of Motion. negative: Tender Integumentary: positive: Normal Color, Dry, Warm, Hives (mid axillary line bilaterally) Neurologic: positive: Fully Oriented, Alert, Normal Mood/Affect Heart Score/ECG Review - ECG Intrepretation Comment:: 03/15/18 18:47 ventricular rate 72 bpm, W[place] 148 ms, QRS duration 82 ms, QTc 427 ms. Normal sinus rhythm without ST elevations and depressions. ED Treatment Course - LABORATORY CBC & Chemistry Diagram: 03/15/18 12:32 03/15/18 12:32 Medical Decision Making - Medical Decision Making 03/15/18 12:57 Mr. Campbell is a 68 yo M with recent dx of nephrolithiasis in the left ureter presenting after recommendation by Dr. Blanco for intervention in the OR. Initial vitals: Initial Vital Signs Temp Pulse Resp BP Pulse Ox 98.8 F 83 16 114/74 99 03/15/18 10:27 03/15/18 10:27 03/15/18 10:27 03/15/18 10:27 03/15/18 10:27 Work up: Pre-operative labs were drawn as well as an EKG and CXR was ordered. Disposition: Admit to satellite OR for intervention per Dr. Blanco. Patient was taken to the OR by Bella's team 03/15/18 18:48 *DC/Admit/Observation/Transfer Diagnosis at time of Disposition: Renal colic on left side - Discharge Dispostion Decision to Admit order: Yes - Referrals - Patient Instructions - Post Discharge Activity
[2018-03-15 12:46] LABS: HEMATOCRIT 40.4 % (35.4-49); HEMOGLOBIN 14.4 GM/dL (11.7-16.9); MCH 33.6 pg (25.7-33.7); MCHC 35.7 g/dl (32.0-35.9); MEAN CELL VOLUME 94.2 fl (80-96); MEAN PLT VOLUME 8.1 fl (7.5-11.1); PLATELET COUNT 310 K/MM3 (134-434); RBC 4.29 M/mm3 (4.00-5.60); RDW 12.4 % (11.9-15.9)
--- NOTE | 2018-03-15 12:53 | PDOC ---
Attending Attestation - HPI HPI: 03/15/18 13:03 The patient is a 68 year old male with a past medical history of renal stones and total hip replacement who presents to the emergency department for abnormal lab results. Patient was sent by urologist for possible OR intervention. Patient reports his urologist Dr. Blanco prompted him to visit the emergency department for further evaluation secondary to creatinine level of 1.3 with gfr of 58. At presentation, patient is asymptomatic. Denies any pain, dysuria, and hematuria. Allergies: Morphine - Medical Decision Making The patient is a 68 year old male with a past medical history of renal stones and total hip replacement who presents to the emergency department for abnormal lab results. Plan: Chest PA & LAT EKG Labs Urinalysis <Kristi Iniguez - Last Filed: 03/15/18 13:44> - Resident Resident Name: KimBlack - ED Attending Attestation I have performed the following: I have examined & evaluated the patient, The case was reviewed & discussed with the resident, I agree w/resident's findings & plan, Exceptions are as noted - Physicial Exam PE: 03/15/18 13:44 Reviewed Residents PE - Medical Decision Making Pt. sent into ED for stent placement. Seen by urology. Sent to OR. <Jerod Lee - Last Filed: 03/15/18 13:44> Attestations - Attestations Documentation prepared by Kristi Iniguez, acting as medical record administrator for Jerod Lee MD. <Kristi Iniguez - Last Filed: 03/15/18 13:44>
[2018-03-15 12:58] LABS: INR 1.24 (0.83-1.09); PROTHROMBIN TIME (PATIENT) 14.7 SEC (9.7-13.0)
[2018-03-15 13:01] LABS: ACTIVATED PTT 31.2 SECONDS (25.2-36.5)
[2018-03-15 13:52] LABS: ALBUMIN 3.4 g/dl (3.4-5.0); ALK PHOS 103 U/L (45-117); ANION GAP 7 MMOL/L (8-16); BILIRUBIN,TOTAL 0.6 mg/dL (0.2-1); BLOOD UREA NITROGEN 17 mg/dL (7-18); CALCIUM 8.6 mg/dL (8.5-10.1); CHLORIDE 104 mmol/L (98-107); CO2 26 mmol/L (21-32); CREATININE 1.2 mg/dL (0.55-1.3); GLUCOSE,RANDOM 110 mg/dL (74-106); POTASSIUM 4.3 mmol/L (3.5-5.1); SGOT/AST 30 U/L (15-37); SGPT/ALT 39 U/L (13-61); SODIUM 137 mmol/L (136-145); TOT PROT 7.5 g/dl (6.4-8.2)
[2018-03-15] MEDS ORDERED: MIDAZOLAM HCL 2 MG/2 ML SINGLE DOSE VIAL ONE (14:11)
[2018-03-15] MEDS ORDERED: PROPOFOL 20 ML ONE (14:12)
[2018-03-15] MEDS ORDERED: IOHEXOL 300 MG/ML INFUS..BTL IV ONE (14:32)
[2018-03-15 16:39] VITALS: BP 130/70; PULSE 70; TEMP 98
--- NOTE | 2018-03-15 18:32 | CON.GU ---
Consult Consult Specialty:: urology Referred by:: ed Reason for Consultation:: renal insufficiency with left hydronephrosis - History of Present Illness Chief Complaint: renal insufficiency with left hydronephrosis History of Present Illness: Patient with ongoing hydronephrosis with renal insufficiency. Patient is advised to have a retrograde pyelogram to evaluate obstruction and correct the hydronephrosis. Patient with intermittent left colic. - History Source History Provided By: Patient - Alcohol/Substance Use Hx Alcohol Use: No - Smoking History Smoking history: Never smoked Have you smoked in the past 12 months: No Aproximately how many cigarettes per day: 0 Home Medications - Allergies Allergies/Adverse Reactions: Allergies Allergy/AdvReac Type Severity Reaction Status Date / Time morphine Allergy Intermediate Hives Verified 03/15/18 10:24 - Home Medications Home Medications: Ambulatory Orders Aspirin [Aspirin EC] 81 mg PO DAILY 06/29/11 Multivit-Min/Folic/Vit K/Lycop [One-A-Day Men's Tablet] 1 each PO DAILY Acetaminophen [Tylenol .Regular Strength -] 650 mg PO Q6H PRN tablet 03/02/18 Polyethylene Glycol 3350 [Miralax 119 gm Btl -] 17 gm PO DAILY #1 bottle Tamsulosin HCl [Flomax -] 0.4 mg PO DAILY@0830 #30 cap.er.24h 03/02/18 Physical Exam- Vital Signs: Vital Signs Temperature 98.0 F 03/15/18 16:25 Pulse Rate 70 03/15/18 16:25 Respiratory Rate 18 03/15/18 16:25 Blood Pressure 130/70 03/15/18 16:25 O2 Sat by Pulse Oximetry (%) 98 03/15/18 15:30 Constitutional: Yes: Well Nourished, No Distress, Calm Eyes: Yes: WNL, Conjunctiva Clear, EOM Intact HENT: Yes: WNL, Atraumatic Neck: Yes: WNL, Supple, Trachea Midline Cardiovascular: Yes: WNL, Regular Rate and Rhythm Respiratory: Yes: WNL, Regular Gastrointestinal: Yes: Normal Bowel Sounds, Soft Renal/: Yes: CVA Tenderness - Left Kidneys: Yes: Flank Pain Left Pelvis: Yes: WNL, Bladder Non Palpable, Other Scrotum: Yes: WNL Penis: Yes: WNL Prostate Exam: Yes: Deferred Extremities: Yes: WNL, Internal Rotation Labs: CBC, BMP 03/15/18 12:32 03/15/18 12:32 Assessment/Plan imp left hydronephrosis with ureteral stone acute renal insufficiency plan patient for left retrogade pyelogram discussed with patient and x25 minutes
--- NOTE | 2018-03-15 18:35 | OP ---
Operative Note - Note: Operative Date: 03/15/18 Pre-Operative Diagnosis: acute renal insufficiency/left hydronephrosis with ureteral stone Operation: cystoscopy/left retrograde pyelogam/left ureteroscopy Findings: filling defect in distal ureter with moderate distal hyroureter. erythema and edema of distal ureter consistent with stone passage. no stone or neoplasm noted Post-Operative Diagnosis: Other (passed stone with moderate distal hydroureter) Surgeon: Acosta Blanco Anesthesia: Fractional
--- NOTE | 2018-03-16 10:56 | OP ---
DATE OF OPERATION: 03/15/2018 PREOPERATIVE DIAGNOSES: Acute renal insufficiency and left hydronephrosis with ureteral stone. POSTOPERATIVE DIAGNOSES: Filling defect in distal ureter with moderate distal hydroureter status post stone passage. ATTENDING: Alejandro Gipson MD ANESTHESIA: General. DESCRIPTION OF OPERATION: The patient was brought in the operating room and placed in supine position on the operating room table. Patient was then given anesthesia and preoperative antibiotics. The patient was then placed in the dorsal lithotomy position and prepped and draped in the usual sterile manner. The patient has a history of a left distal ureteral stone which did not appear to have passed with elevated creatinine levels and a persistent hydronephrosis on the left. The patient also continues with intermittent left flank pain. The patient was brought into the hospital in order to evaluate the patient for an obstruction. The patient undergoes cystoscopy. No evidence of stone is noted within the bladder. Edema of the left ureteral orifice is noted. At this point, a retrograde pyelogram is performed, and the filling defect is noted in the distal ureter with a mild distal hydroureter. At this point, a rigid ureteroscope is taken to the distal left ureter, and the ureter was observed to the level of the iliac vessels. No stone or neoplasm was noted. The left distal ureter appeared dilated consistent with a recent stone passage. In addition, there was erythema and edema of the lining of the distal ureter. No evidence of neoplasm was noted. It was decided to leave the patient without a stent. Patient tolerated the procedure very well. There were no complications noted. The disposition of the patient was to the recovery room. ALEJANDRO GIPSON M.D. [id number]
--- NOTE | 2018-03-16 12:10 | EKG ---
Test Reason : Blood Pressure : / mmHG Vent. Rate : 072 BPM Atrial Rate : 072 BPM P-R Int : 148 ms QRS Dur : 082 ms QT Int : 390 ms P-R-T Axes : 067 000 -07 degrees QTc Int : 427 ms POOR DATA QUALITY, INTERPRETATION MAY BE ADVERSELY AFFECTED NORMAL SINUS RHYTHM NORMAL ECG Confirmed by MD JARED, BRUNILDA ([id number]) on 03/16/2018 12:09:35 PM Referred By: Confirmed By:BRUNILDA COLEMAN MD
== END 2018-03-15 16:30 | disposition home or self-care (01) ==
LOC: JER 10:17 → JASUSAT 12:43
PROVIDERS: ATTEND Urology
PROC: BT1FYZZ Fluoroscopy of Left Kidney, Ureter and Bladder using Other Contrast (ICD-10-PCS; principal; 2018-03-15 14:30)
DX: N13.30 Unspecified hydronephrosis (principal); N28.9 Disorder of kidney and ureter, unspecified
CPT/HCPCS: 36415; 71046-TC-FY; 76000-TC-FY; 80053; 82550; 82553; 84484; 85027; 85610; 85730; 86850; 86900; 86901; 93005; 93010; 94760; 99282-25

== ENCOUNTER 2022-12-11 23:34 | Emergency (ER) | payer OTHER, MEDICARE ==
[2022-12-11 23:41] VITALS: BP 117/90; PULSE 87; RESP 18; TEMP 99.1; BMI 29.2
[2022-12-11] MEDS ORDERED: DOCUSATE NA 100 MG/10 ML UNIT-DOSE CUPS PO ONE (23:55)
[2022-12-11] MEDS ORDERED: MAGNESIUM CITRATE 300 ML BOTTLE PO ONE (23:55)
[2022-12-12] MEDS ORDERED: MAGNESIUM CITRATE 300 ML BOTTLE ONE (00:03)
[2022-12-12] MEDS ORDERED: DOCUSATE SODIUM 100 MG CAPSULE (FP) PO ONE (00:05)
== END 2022-12-12 00:09 | disposition home or self-care (01) ==
LOC: FER 23:34 → SUPCPDRO 23:34 → FER 12-12 00:09
DX: K59.00 Constipation, unspecified (principal); R10.84 Generalized abdominal pain
CPT/HCPCS: 99283-25